=== PATIENT | female | born 1960 | race African-American/Black ===

== ENCOUNTER → 2016-11-08 10:45 | Outpatient (CLI) | payer MEDICAID ==
[2016-04-27 16:13] VITALS: BMI 33.7
[~2016-11-08 10:45] MED LIST: ACETAMINOPHEN325 MG PO; AMBIEN5 MG PO; ASPIRIN 81 MG E81 MG PO; FLAGYL250 MG PO; FLAGYL500 MG PO; GERITOL; GLUCOTROL 5 MG T5 MG PO; HYDROCODON-ACE1 EAC7 PO; LEVAQUIN250 MG PO; LOPRESSOR25 MG PO; MEGACE40 MG PO; NEPHRO-VITE RX1 TAB; NEURONTIN 300300 MG PO; NORVASC5 MG PO; OMEPRAZOLE40 MG PO; PHENERGAN25 M1; PLAVIX75 MG PO; PRENATE ESSENT1 EACH; PROAIR HFA8.5 GM INH; RENVELA800 MG PO; SENSIPAR30 MG PO; TOPROL XL25 MG PO; ULTRAM50 MG PO; ZESTRIL10 MG PO; ZOFRAN4 MG PO; [UNRECOGNIZED DRUG - OTHER] PO
--- NOTE | 2016-11-14 14:16 | ST ---
PATIENT:NAVJOT CHANDLER MEDICAL RECORD: [id number] SEX: F LOCATION:[facility] ORDER #: ADMISSION DATE: 11/08/16 AGE OF PATIENT: 56 REFERRING PHYSICIAN: INTERPRETING PHYSICIAN: NICOLAS MOURA MD DATE OF SERVICE: 11/08/2016 Nuclear Stress Test INDICATION: Cheat pain of unknown etiology. She was exercised on standard Lexiscan protocol with 30.4 mCi of sestamibi injected at peak stress. Rest images were done previously with 11.7 mCi. FINDINGS: Gated SPECT reveals preserved ejection fraction at 68% with good wall motion and thickening and brightening throughout all segments. SPECT imaging sestamibi was used as myocardial perfusion agent. There is homogeneous uptake throughout all segments at rest and stress with no evidence of inducible ischemia or previous infarction. OVERALL IMPRESSION: 1. This is a normal nuclear stress test with no evidence of inducible ischemia or previous infarction. 2. Gated SPECT reveals preserved ejection fraction at 68% in this patient with ongoing symptomatology, the current scan does not suggest the presence of hemodynamically significant coronary artery disease. We will proceed with noncardiac etiology of chest pain workup. TRANSINT:[id number] Voice Confirmation ID: [id number] DOCUMENT ID: [id number] NICOLAS MOURA MD at 1416 CC: [id number] DICTATION DATE: 11/08/16 1636 PARK MANAGER: 11/08/162020 DEP CLI 11/08/16 [facility] [address] [place] [address]
== END | disposition home or self-care (01) ==
LOC: D.NM 10:45
DX: I20.9 Angina pectoris, unspecified (principal)

== ENCOUNTER 2016-12-07 12:00 | Emergency (ER) | payer MEDICAID ==
[2016-04-27 16:13] VITALS: BMI 33.7
[2016-12-07 13:22] LABS: BASOPHILS 0.5 % (0.0-2.0); EOSINOPHILS 3.8 % (0-7); HEMATOCRIT 34.6 % (36.0-48.0); HEMOGLOBIN 10.9 g/dL (12-16); IMMATURE GRANULOCYTES 0.3 % (0-5); LYMPHOCYTES 31.3 % (15-50); MCH 34.2 pg (26.0-34.0); MCHC 31.5 g/dL (31.0-37.0); MCV 108.5 fL (80.0-100.0); MONOCYTES 18.1 % (2-11); PLATELET COUNT 168 10x3/uL (130-400); RBC 3.19 10x6/uL (4.00-5.40); RDW 14.4 % (11.5-14.5); WBC 3.9 10x3/uL (4.8-10.8)
[2016-12-07 13:40] LABS: ALBUMIN 3.2 g/dL (3.4-5.0); ALKALINE PHOSPHATASE 86 U/L (46-116); ALT (SGPT) 17 U/L (10-68); BILIRUBIN - TOTAL 0.47 mg/dL (0.2-1.3); CALC OSMOLALITY 289 mosm/kg (275-300); CALCIUM 8.9 mg/dL (8.5-10.1); CARBON DIOXIDE 26.9 mmol/L (21.0-32.0); CHLORIDE - SERUM 103 mmol/L (98-107); CREATININE - SERUM 10.4 mg/dL (0.6-1.3); GLUCOSE 127 mg/dL (74-106); POTASSIUM - SERUM 4.5 mmol/L (3.5-5.1); PROTEIN - SERUM 7.2 g/dL (6.4-8.2); SODIUM 140 mmol/L (136-145); UREA NITROGEN 37 mg/dL (7-18); eGFR NON AFRICAN AMERICAN 4 mL/min (90-120)
[2016-12-07 13:52] LABS: CKMB 1.8 U/L (0.0-3.6); CREATINE KINASE 106 UL (21-215); TROPONIN-I < 0.017 ng/mL (0.000-0.060)
== END 2016-12-07 15:49 | disposition home or self-care (01) ==
LOC: D.ER 12:00
PROVIDERS: Emergency Medicine
DX: I47.1 Supraventricular tachycardia (principal); I50.9 Heart failure, unspecified; J45.909 Unspecified asthma, uncomplicated; E11.9 Type 2 diabetes mellitus without complications

== ENCOUNTER 2017-02-16 17:56 | Inpatient (IN) | payer MEDICAID ==
[~2017-02-16] VITALS: Ht 154.9 cm; Wt 90.7 kg
[2017-02-16 18:22] LABS: BASOPHILS 0.4 % (0-2); EOSINOPHILS 4.3 % (0-7); HEMOGLOBIN 10.2 g/dL (12-16); MCHC 31.9 g/dL (31.0-37.0); MCV 106.7 fL (80.0-100.0); MEAN PLATELET VOLUME 11.2 fL (7.4-10.4); MONOCYTES 14.9 % (2-11); NEUTROPHILS 50.4 % (40-80); PLATELET COUNT 154 10x3/uL (130-400); RDW 14.2 % (11.5-14.5); WBC 4.6 10x3/uL (4.8-10.8)
[2017-02-16 18:41] LABS: ALBUMIN 3.7 g/dL (3.4-5.0); ANION GAP 21.7 mmol/L (8-16); BILIRUBIN - TOTAL 0.53 mg/dL (0.2-1.3); CALCIUM 9.1 mg/dL (8.5-10.1); CARBON DIOXIDE 22.4 mmol/L (21.0-32.0); CREATININE - SERUM 17.4 mg/dL (0.6-1.3); PROTEIN - SERUM 7.5 g/dL (6.4-8.2)
[2017-02-16 18:43] LABS: POTASSIUM - SERUM 6.1 mmol/L (3.5-5.1)
--- NOTE | 2017-02-16 21:33 | NUR ---
REPORT CALLED FROM ER.
[2017-02-16 23:00] VITALS: BP 157/84
--- NOTE | 2017-02-16 23:43 | NUR ---
PT WAS BROUGHT TO FLOOR FROM ER VIA STRETCHER. SHE HAD BEEN INCONTINENT OF LIQUID BM SO COMPLETE BED BATH PROVIDED SOON PATIENT WAS TRANSFERRED TO BED. ADMISSION ASSESSMENT AND HISTORY INITIATED. SKIN ASSESSMENT, PT HAS REDDENED SACRAL/COCCYX AREA DUE TO FREQUENT BM'S FROM THE KAYEXALATE GIVEN IN ER. PT IS A POOR HISTORIAN, FALLING ASLEEP MID ANSWER. SHE DID AGREE THAT SHE IS HUNGRY AND SANDWICH PROVIDED. TELEMETRY STARTED, PT IS 76 SR PER SENIOR PRODUCTION PLANNER. SHE IS ALERT/ORIENTED TO PERSON, PLACE AND TIME.
[2017-02-17 02:03] VITALS: BP 174/96; BMI 37.8
--- NOTE | 2017-02-17 03:42 | NUR ---
RESTING IN BED WITH NO DISTRESS. CPOC. CALL LIGHT IN REACH.
[2017-02-17 05:47] LABS: BASOPHILS 0.5 % (0-2); HEMATOCRIT 32.5 % (36.0-48.0); HEMOGLOBIN 10.4 g/dL (12-16); IMMATURE GRANULOCYTES 0.2 % (0-5); LYMPHOCYTES 35.4 % (15-50); MCH 33.7 pg (26.0-34.0); MCV 105.2 fL (80.0-100.0); MEAN PLATELET VOLUME 11.7 fL (7.4-10.4); MONOCYTES 11.6 % (2-11); NEUTROPHILS 48.3 % (40-80); PLATELET COUNT 127 10x3/uL (130-400); RBC 3.09 10x6/uL (4.00-5.40); RDW 14.1 % (11.5-14.5); WBC 4.2 10x3/uL (4.8-10.8)
[2017-02-17 06:04] LABS: ALBUMIN 3.5 g/dL (3.4-5.0); BILIRUBIN - TOTAL 0.41 mg/dL (0.2-1.3); CALCIUM 9.6 mg/dL (8.5-10.1); CARBON DIOXIDE 23.4 mmol/L (21.0-32.0); CREATININE - SERUM 18.4 mg/dL (0.6-1.3); PROTEIN - SERUM 7.3 g/dL (6.4-8.2)
[2017-02-17 06:05] LABS: ANION GAP 21.6 mmol/L (8-16)
[2017-02-17 06:42] VITALS: BP 163/87
--- NOTE | 2017-02-17 07:51 | NUR ---
AM ROUNDING- RECEIVED REPORT FROM OIL AND GAS FIELD TECHNICIAN NURSE CAR. PT IS CURRENLTY LAYING IN BED ON BACK WITH EYES CLOSED RESTING. ON MONITOR SHOWING SR, HR 74. ON ROOM AIR. RESERVE RIGHT ARM FOR AVF. IV SEEN TO LEFT FOREARM THAT IS CURRENTLY SALINE LOCKED. PTS POTASSIUM IS 6.0. DR. ROSS ON UNIT. NOTIFIED HIM OF THIS. NO NEED AT CURRENT TIME. WILL CONTINUE TO MONITOR AND CONTINUE WITH PLAN OF CARE.
[2017-02-17 07:56] VITALS: BP 188/100
--- NOTE | 2017-02-17 10:48 | NUR ---
PT TO DIALYSIS VIA BED.
--- NOTE | 2017-02-17 11:58 | NUR ---
02/17/2017 11:54 CLIN: Clinical Finding Routine [facility], but has not been in past 6 days per her statement, due to diarrhea. Where was patient admitted from? ACUTE: Acute Care Facility AL: Assisted Living HOME: Home HOSPICE: Hospice INREH: Inpatient Rehab Facility LTAC: Full Decator Operator Acute Care NH: Longterm SNF: Senior Care Facility Has there been an admission to this or another facility in the last 30 days? Yes No Clear 02/17/2017 11:54 CLIN: Clinical Finding Routine [facility], but has not been in past 6 days per her statement, due to diarrhea. Fariha Neal RN Cm
[2017-02-17 12:12] VITALS: Ht 154.9 cm; Wt 90.7 kg
--- NOTE | 2017-02-17 15:01 | NUR ---
PT IS BACK FROM DIALYSIS.
[2017-02-17 15:42] VITALS: BP 172/88
--- NOTE | 2017-02-17 16:40 | NUR ---
DIALYSIS COORDINATOR: PATHWAYS: [facility] Mon/Mon/Mon @ 11:45am. [place] DC
--- NOTE | 2017-02-17 17:21 | NUR ---
PT IS CURRENTLY LAYING IN BED ON BACK WITH EYES OPEN RESTING. DENIES ANY NEED AT CURRENT TIME. WILL CONTINUE TO MONITOR.
--- NOTE | 2017-02-17 19:43 | NUR ---
RECEIVED REPORT, PT IS SLEEPING, BED IS LOW, SRX3, PLACED BOX ALARM ON PT, CALL LIGHT IN REACH, WILL CONTINUE TO MONITOR
[2017-02-17 20:21] VITALS: BP 126/71
[2017-02-18 00:28] VITALS: BP 117/68
[2017-02-18 04:13] VITALS: BP 106/63
--- NOTE | 2017-02-18 04:31 | NUR ---
ASSESSMENT COMPLETE, SEE FLOWSHEET, PT IS SLEEPING, HELD ULTRAM, CALL LIGHT IN REACH, WILL CONTINUE PLAN OF CARE
--- NOTE | 2017-02-18 07:31 | NUR ---
AM ROUNDING- RECEIVED REPORT FROM SUPERVISOR METAL HANGING NURSE BRANDO. PT IS CURRENTLY SITTING UP IN BED WITH EYES OPEN RESTING. ON MONITOR SHOWING SR, HR 77. ON ROOM AIR. RESERVE RIGHT ARM FOR AVF. IV SEEN TO LEFT FOREARM THAT IS CURRENTLY SALINE LOCKED. NO NEED AT CURRENT TIME. WILL CONTINUE TO MONITOR AND CONTINUE WITH PLAN OF CARE.
[2017-02-18 08:36] VITALS: BP 139/80
[2017-02-18 11:16] LABS: BASOPHILS 0.3 % (0-2); EOSINOPHILS 3.5 % (0-7); HEMATOCRIT 33.6 % (36.0-48.0); HEMOGLOBIN 10.8 g/dL (12-16); LYMPHOCYTES 22.5 % (15-50); MCHC 32.1 g/dL (31.0-37.0); MCV 105.7 fL (80.0-100.0); MEAN PLATELET VOLUME 10.7 fL (7.4-10.4); MONOCYTES 15.9 % (2-11); NEUTROPHILS 57.8 % (40-80); PLATELET COUNT 138 10x3/uL (130-400); RBC 3.18 10x6/uL (4.00-5.40); RDW 13.7 % (11.5-14.5)
[2017-02-18 11:24] LABS: ANION GAP 14.2 mmol/L (8-16); CALCIUM 8.9 mg/dL (8.5-10.1)
[2017-02-18 11:25] LABS: CREATININE - SERUM 11.7 mg/dL (0.6-1.3); POTASSIUM - SERUM 4.2 mmol/L (3.5-5.1)
[2017-02-18 11:28] VITALS: BP 130/65
--- NOTE | 2017-02-18 13:53 | NUR ---
PAGED STACY GUNN NP TO SEE ABOUT PTS SCHEDULED ULTRAM. WILL AWAIT CALLBACK.
--- NOTE | 2017-02-18 14:53 | NUR ---
ASKED PT WHO WILL BE COMING TO GET HER DUE TO PT BEING D/C. PT STATES "MY DAUGHTER". I LOOKED IN CHART AND CALLED PHONE NUMBER PROVIDED WITH MESSAGE STATING PHONE WAS NO LONGER IN SERVICE. ASKED PT IF DAUGHTER WAS AWARE PT IS BEING D/C AND PT STATES "YES SHE SHOULD BE COMING TO GET ME SOON". WILL CONTINUE TO MONITOR.
--- NOTE | 2017-02-18 15:16 | NUR ---
CALLED DAUGHTERS PHONE NUMBER WITH PHONE NUMBER PROVIDED AND GOT ANSWERING MACHINE. LEFT VOICEMAIL AND PHONE NUMBER TO CALL BACK. WILL CONTINUE TO MONITOR.
--- NOTE | 2017-02-18 15:32 | NUR ---
PTS DAUGHTER (KATHERINE) CALLED UNIT. IN INFORMED PTS DAUGHTER THAT PT IS BEING D/C AND SOMEONE WILL HAVE TO COME GET HER. PTS DAUGHTER STATES SHE WILL BE HERE IN ONE HOUR.
--- NOTE | 2017-02-18 15:44 | NUR ---
D/C INSTRUCTIONS EXPLAINE TO PT. D/C PAPERWORK SIGNED BY PT AND PLACED IN CHART. HEART MONITOR REMOVED AND RETURNED TO [facility] WITH TELEMETRY. IV TO LEFT FOREARM REMOVED WITH CATH TIP INTACT. COVERED SITE WITH 2X2 GUAZE PADS AND SECURED WITH TAPE. TOLERATED WELL. AWAITING PTS DAUGHTER TO COME GET PT. WILL CONTINUE TO MONITOR.
--- NOTE | 2017-02-18 17:31 | NUR ---
DAUGHTER CAME TO GET PT. PT D/C VIA WHEELCHAIR.
== END 2017-02-18 17:32 | disposition home or self-care (01) | DRG 640 ==
LOC: D.ER 17:56 → D.M2 19:46
PROVIDERS: Emergency Medicine; Internal Medicine; ADMIT Internal Medicine Nephrology
PROC: 5A1D00Z (ICD-10-PCS; principal; 2017-02-17)
DX: E87.5 Hyperkalemia (principal); N18.6 End stage renal disease; I13.2 Hypertensive heart and chronic kidney disease with heart failure and with stage 5 chronic kidney disease, or end stage renal disease; E11.22 Type 2 diabetes mellitus with diabetic chronic kidney disease; I50.9 Heart failure, unspecified; Z99.2 Dependence on renal dialysis; Z91.15 Patient's noncompliance with renal dialysis; E11.40 Type 2 diabetes mellitus with diabetic neuropathy, unspecified; F20.9 Schizophrenia, unspecified; J44.9 Chronic obstructive pulmonary disease, unspecified; F41.9 Anxiety disorder, unspecified

== ENCOUNTER 2019-03-12 14:23 | Inpatient (IN) | payer MEDICAID ==
[~2019-03-12] VITALS: Ht 154.9 cm; Wt 78.5 kg
[2019-03-12 15:48] LABS: BASOPHILS 0.4 % (0-2); EOSINOPHILS 3.3 % (0-7); HEMATOCRIT 29.6 % (36.0-48.0); HEMOGLOBIN 9.4 g/dL (12-16); IMMATURE GRANULOCYTES 0.3 % (0-5); LYMPHOCYTES 12.8 % (15-50); MCH 34.1 pg (26.0-34.0); MCHC 31.8 g/dL (31.0-37.0); MCV 107.2 fL (80.0-100.0); MEAN PLATELET VOLUME 10.4 fL (7.4-10.4); MONOCYTES 7.1 % (2-11); NEUTROPHILS 76.1 % (40-80); RBC 2.76 10x6/uL (4.00-5.40); RDW 14.1 % (11.5-14.5); WBC 7.7 10x3/uL (4.8-10.8)
[2019-03-12 16:00] LABS: PLATELET COUNT 250 10x3/uL (130-400)
[2019-03-12 16:10] LABS: ALBUMIN 3.1 g/dL (3.4-5.0); BILIRUBIN - TOTAL 0.45 mg/dL (0.2-1.3); CALCIUM 9.4 mg/dL (8.5-10.1); CARBON DIOXIDE 24.9 mmol/L (21.0-32.0); CREATININE - SERUM 10.8 mg/dL (0.6-1.3); PROTEIN - SERUM 7.3 g/dL (6.4-8.2)
[2019-03-12 16:14] LABS: POTASSIUM - SERUM 7.9 mmol/L (3.5-5.1)
--- NOTE | 2019-03-12 17:01 | NUR ---
PT BROUGHT TO FLOOR BY ER STAFF. PT VERY LETHARGIC AND EXTREMELY HARD TO WAKE. LAB CALLED AND STATES PT POTASSIUM IS 7.9. CALLED DIALYSIS AND DIALYSIS STATES THEY CAN TAKE PT NOW. SENT PT DOWN TO DIALYSIS WITH A HEART MONITOR. NOTIFIED NURSE THAT HE WOULD LIKE PT TRANSFERED TO ICU ONCE DIALYSIS IS FINISHED.
[2019-03-12 20:19] VITALS: BP 163/83
--- NOTE | 2019-03-12 20:19 | NUR ---
PATIENT ARRIVED TO UNIT VIA BED, ACCOMPANIED BY ONE RN AND TYPING CHECKER. ALL ICU MONITORING CONNECTED. ORAL TEMP 98.6. BP 163/83. HR 102. RR 14. O2 SAT 100% ON ROOM AIR. NO IV ACCESS. Brian SANTORO RN ATTEMPTED IV ON LT ARM, NO SUCCESS. SEE FLOW SHEET FOR COMPLETE ASSESSMENT.
--- NOTE | 2019-03-12 20:47 | NUR ---
CALLED DR. BEE TO INFORM HIM OF UNSUCCESSFUL IV ATTEMPT. WILL WAIT FOR CALL BACK.
--- NOTE | 2019-03-12 20:54 | NUR ---
STACY GUNN APN, SHEET ROLLER OPERATOR FOR DR. BEE. UPDATE GIVEN ON PATIENT STATUS. INFORMED HER OF UNSUCCESSFUL IV ATTEMPT, AND THAT PATIENT HAS SCHEDULED IV ANTIBIOTICS. PER HER ORDERS OK TO ATTEMP IV PLACEMENT ON RT SHOULDER/CHEST, IF UNSUCCESSFUL TO OBTAIN ORDERS FOR CVL PLACEMENT.
[2019-03-12 21:00] VITALS: BP 148/85
--- NOTE | 2019-03-12 21:14 | NUR ---
RT SHOULDER PIV ESTABLISHED BY Brian SANTORO RN, X1 ATTEMPT.
[2019-03-12 22:00] VITALS: BP 156/87
[2019-03-12 23:00] VITALS: BP 130/72
--- NOTE | 2019-03-12 23:14 | NUR ---
REASSESSMENT COMPLETED PER FLOW SHEET, SEE FOR DETAILS. NO ACUTE CHANGES NOTED. WILL CONTINUE TO MONITOR.
[2019-03-13] VITALS (15 sets, daily range): BP systolic 116–168; BP diastolic 66–85; Ht 154.9 cm; Wt 78.5 kg
--- NOTE | 2019-03-13 01:58 | NUR ---
PATIENT YELLING "WATER" PATIENT MORE ALERT, STATES SHE FEELS "BETTER." WATER PROVIDED, TOLERATED WELL, NO TROUBLE SWALLOWING. WILL CONTINUE TO MONITOR.
--- NOTE | 2019-03-13 03:01 | NUR ---
REASSESSMENT COMPLETED PER FLOW SHEET, SEE FOR DETAILS. CONFUSED, REORIENTATION PROVIDED. REQUESTING WATER, WATER PROVIDED. DENIES OTHER NEEDS. WILL CONTINUE TO MONITOR.
[2019-03-13 04:01] LABS: BASOPHILS 0.2 % (0-2); EOSINOPHILS 2.5 % (0-7); HEMATOCRIT 26.7 % (36.0-48.0); HEMOGLOBIN 8.7 g/dL (12-16); IMMATURE GRANULOCYTES 0.4 % (0-5); MCH 33.9 pg (26.0-34.0); MCHC 32.6 g/dL (31.0-37.0); MCV 103.9 fL (80.0-100.0); MEAN PLATELET VOLUME 10.1 fL (7.4-10.4); NEUTROPHILS 81.9 % (40-80); PLATELET COUNT 204 10x3/uL (130-400); RBC 2.57 10x6/uL (4.00-5.40); WBC 5.7 10x3/uL (4.8-10.8)
[2019-03-13 04:11] LABS: ANION GAP 9.4 mmol/L (8-16); CALCIUM 8.7 mg/dL (8.5-10.1); CARBON DIOXIDE 29.2 mmol/L (21.0-32.0)
[2019-03-13 04:40] LABS: CREATININE - SERUM 6.9 mg/dL (0.6-1.3); POTASSIUM - SERUM 4.6 mmol/L (3.5-5.1)
--- NOTE | 2019-03-13 05:00 | NUR ---
AWAKE AND ALERT. WATER PROVIDED, DENIES OTHER NEEDS. WILL CONTINUE TO MONITOR.
--- NOTE | 2019-03-13 07:00 | NUR ---
PT RESTING IN BED WITH CALL WILDE IN REACH. VSS. IV TO RIGHT SHOULDER WITH D5W INFUSING AT 75ML/HR. FISTULA TO RIGHT UPPER ARM WITH THRILL AND BRUIT. LINENS CLEAN AND DRY. WILL CONTINUE TO MONITOR
--- NOTE | 2019-03-13 08:38 | NUR ---
SERVED BREAKFAST TRAY IN BED. ELEVATED HOB 90 DEGREES.
--- NOTE | 2019-03-13 09:00 | NUR ---
OBTAINED TRANSFER ORDERS FROM DR. BEE AND RESTARTED SOME [facility] HOME MEDS PER ORDERS. PT RESTING IN BED WITH CALL WILDE IN REACH. WILL CONTINUE TO MONITOR
--- NOTE | 2019-03-13 11:28 | NUR ---
SPOKE TO SON, LAWRENCE CHANDLER ON PHONE. OBTAINED NUMBER AND PUT IN COMPUTER. EXPLAINED THAT NO INFORMATION COULD BE GIVEN WITHOUT A PASSWORD SET UP, AND EXPLAINED SOMEONE WOULD NEED TO COME SEE PATIENT TO SET UP PASSWORD.
--- NOTE | 2019-03-13 11:52 | NUR ---
CALLED REPORT TO MED 2 NURSE, LILLIAN.
--- NOTE | 2019-03-13 13:00 | NUR ---
PT RESTING IN BED, DENIES ANY NEEDS AT THIS TIME, WILL CONT TO FOLLOW POC
[2019-03-13] MEDS ORDERED: PRED FORTE5 ML LEFT EYE (14:50)
--- NOTE | 2019-03-13 15:16 | NUR ---
PT STATES HER RIGHT EYE IS HURTING. PT STATES SHE IS SEEN BY AN EYE DOCTOR AT [facility] BUT CANNOT REMEMBER HIS NAME. CALLED [facility] AT [facility] AND THEY WERE ABLE TO VERIFY THAT THE PT IS TREATED THERE. [facility] TOLD NURSE THAT THE PT TAKES PREDNISOLONE ACETATE 1% DAILY. NOTIFIED AMANDA FAITH. NEW ORDER RECIEVED TO RESTART THIS MEDICATION.
--- NOTE | 2019-03-13 18:00 | NUR ---
PT RESTING IN BED EATING SUPPER, DENIES ANY NEEDS AT THIS TIME, CALL LIGHT WITHIN REACH, WILL CONT TO FOLLOW POC
--- NOTE | 2019-03-14 03:30 | NUR ---
PT WOKE UP SCREAMING "THERE IS A BLACK BOLIVIAN IN MY ROOM WITH A GUN. HE'S TRYNA KILL ME." PT APPEARS CONFUSED. SHE JUST WOKE UP FROM SLEEP. HELPED CALM PT DOWN ANDN ASSERT THAT NO KILLER WAS IN HER ROOM. PT NOW CALM AND RESTING IN BED. ASSSES VSS. BP 184/85 @ THIS TIME. WILL RECHECK IN 15MIN. PT 105 SINUS TACH ON TELE @ THIS TIME. WILL CTM. COMFORT CARE PRODIDED TO PT. CL WITHIN REACH, BED IN LOW, SR UP X2.
--- NOTE | 2019-03-14 03:55 | NUR ---
RECHECKED BP NOW 156/80. PT RESTING IN BED. IV ZOSYN INFUSING. PT DENIES ANY FURTHER NEED AT THIS TIME. WILL CPOC.
[2019-03-14 04:13] LABS: BASOPHILS 0.3 % (0-2); EOSINOPHILS 3.7 % (0-7); HEMOGLOBIN 8.9 g/dL (12-16); LYMPHOCYTES 16.8 % (15-50); MCH 33.5 pg (26.0-34.0); MEAN PLATELET VOLUME 10.4 fL (7.4-10.4); MONOCYTES 11.1 % (2-11); NEUTROPHILS 68.1 % (40-80); PLATELET COUNT 193 10x3/uL (130-400); RBC 2.66 10x6/uL (4.00-5.40); RDW 13.5 % (11.5-14.5)
[2019-03-14 04:15] LABS: MCV 101.5 fL (80.0-100.0); WBC 3.5 10x3/uL (4.8-10.8)
[2019-03-14 04:30] VITALS: BP 156/80
[2019-03-14 04:47] LABS: ANION GAP 15.6 mmol/L (8-16); CALCIUM 8.8 mg/dL (8.5-10.1); CARBON DIOXIDE 26.1 mmol/L (21.0-32.0); CREATININE - SERUM 8.6 mg/dL (0.6-1.3); POTASSIUM - SERUM 4.7 mmol/L (3.5-5.1)
--- NOTE | 2019-03-14 07:30 | NUR ---
A/A/OX3. DISORIENTED TO SITUATION. TOLD ME "I SAW YOU AND THAT MAN TALKING IN THE CORNER AND WHAT YOU SAID ABOUT ME". TRIED TO CONVINCE PT THERE WAS NO MAN IN HER ROOM. NEXT SHE STATED "CZECH MAN WAS IN HERE AND WOULDN'T LEAVE." ASSURED PT I COULD SEE HER ROOM FROM MY DESK AND NO BODY HAD BEEN IN THERE. ASSESSMENT COMPLETED. DENIES ANY PAIN OR DISCOMFORT AND NO OTHER REQUESTS VOICED. WILL CONTINUE POC.
[2019-03-14 07:35] VITALS: BP 186/95
--- NOTE | 2019-03-14 09:30 | NUR ---
TO DIALYSIS VIA BED.
--- NOTE | 2019-03-14 11:04 | NUR ---
Nutrition follow-up: Diet: Renal ADA PO Intake ~50% of meals; pt is also eating snacks Labs reviewed Wt: 173# RDN following.
[2019-03-14] MEDS ORDERED: LEVOFLOXACIN500 MG PO (12:10)
--- NOTE | 2019-03-14 12:53 | NUR ---
I have reviewed this patient and I concur with the Shift Assessment completed by the Licensed Practical Nurse today this shift.
--- NOTE | 2019-03-14 14:44 | NUR ---
RETURN TO ROOM VIA BED FROM DIALYSIS.
--- NOTE | 2019-03-14 16:40 | MORECARE ---
CASE MANAGEMENT DISCHARGE SUMMARY PATIENT: NAVJOT CHANDLER UNIT: [id number] ADM DATE: 03/12/19 AGE: 58 : 56 SEX: F ROOM/BED: D.2115 AUTHOR: KATARINA GARCIA PHYSICIAN: REFERRING PHYSICIAN: INGRID BEE MD DATE OF SERVICE: 03/14/19 Discharge Plan Patient Name: NAVJOT CHANDLER Facility: [facility]:[place] : 1960 Planned Disposition: Home Anticipated Discharge Date: 03/14/19 Discharge Date: Expected LOS: 2 Initial Reviewer: [email or web address] Initial Review Date: 03/14/2019 Generated: 03/14/19 5:39 pm Comments DCP- Discharge Planning Updated by [id number]: Levy Hope on 03/14/19 10:[address] Patient Name: NAVJOT CHANDLER Encounter No: [id number] : 1960 Primary Insurance: MEDICAID [place] Anticipated DC Date: Planned Disposition: External Planned Provider: : DCP follow-up note: CM SPOKE TO NEDA GUNN WHO INFORMED CM THAT PT WILL DISCHARGE TODAY. CM ATTEMPTED TO MEET WITH PT FOR INITIAL ASSESSMENT OF DISCHARGE NEEDS. PT WAS NOT IN ROOM AT [id number] HOURS. CM TO ATTEMPT ASSESSMENT OF PT AT A LATER TIME. Levy Hope, ABRIL MORRIS DCP- Discharge Planning Updated by [id number]: Fariha Neal on 03/12/19 3:[address] CM attempted dc planning, but mental status is altered. Patient is unable to answer questions at this time. Patient is a transfer from [facility], and is a HD patient in [place], on . Attempted to contact Daughter, Kezia Chandler @[phone] was instructed "the phone number has calling restrictions". CM will attempt to evaluate patient at a later time when she is more alert. CM will assist as needed PRN. Fariha Neal RN Patient Name: NAVJOT CHANDLER Page [phone] at 1640 All edits/amendments must be made on the electronic document DICTATION DATE: 03/14/19 1639 LAUNDRY PRESS OPERATOR: AARON 03/14/19 1639 RPT#: [id number] DC DATE: STATUS: ADM IN [facility] [address] [place] [address] END OF REPORT
--- NOTE | 2019-03-14 16:49 | MORECARE ---
CASE MANAGEMENT DISCHARGE SUMMARY PATIENT: NAVJOT CHANDLER UNIT: [id number] ADM DATE: 03/12/19 AGE: 58 : 56 SEX: F ROOM/BED: D.0270 AUTHOR: JOSE,DOC PHYSICIAN: REFERRING PHYSICIAN: INGRID BEE MD DATE OF SERVICE: 03/14/19 Discharge Plan Patient Name: NAVJOT CHANDLER Facility: [facility]:[place] : 1960 Planned Disposition: Home Anticipated Discharge Date: 03/14/19 Discharge Date: Expected LOS: 2 Initial Reviewer: [email or web address] Initial Review Date: 03/14/2019 Generated: 03/14/19 5:49 pm Comments DCP- Discharge Planning Updated by [id number]: Levy Hope on 03/14/19 10:[address] Patient Name: NAVJOT CHANDLER Encounter No: [id number] : 1960 Primary Insurance: MEDICAID [place] Anticipated DC Date: Planned Disposition: External Planned Provider: : DCP follow-up note: CM SPOKE TO NEDA GUNN WHO INFORMED CM THAT PT WILL DISCHARGE TODAY. CM ATTEMPTED TO MEET WITH PT FOR INITIAL ASSESSMENT OF DISCHARGE NEEDS. PT WAS NOT IN ROOM AT [id number] HOURS. CM TO ATTEMPT ASSESSMENT OF PT AT A LATER TIME. Levy Hope, CASE MANAGEMENT DCP- Discharge Planning Updated by [email or web address]: Fariha Neal on 03/12/19 3:[address] CM attempted dc planning, but mental status is altered. Patient is unable to answer questions at this time. Patient is a transfer from [facility], and is a HD patient in [place], . Attempted to contact Daughter, Katherine Chandler @[phone] was instructed "the phone number has calling restrictions". CM will attempt to evaluate patient at a later time when she is more alert. CM will assist as needed PRN. Fariha Neal RN DCPIA - Discharge Planning Initial Assessment Updated by [id number]: Levy Hope on 03/14/19 4:41 pm * Is the patient Alert and Oriented? Yes * How many steps to enter\\exit or inside your home? * PCP DR. MARTHA ASTUDILLO * Pharmacy [facility] IN [place] OR [place] * Preadmission Environment Home with Family * ADLs Independent * Equipment Cane Nebulizer Rolling Walker * Other Equipment ROLLING WALKER HAS A SEAT NO MEDICAL EQUIPMENT PROVIDER PREFERENCE * List name and contact numbers for known caregivers / representatives who currently or will assist patient after discharge: KATHERINE GERALDINE, DTR, MERLIN ABRAHAM, DTR IN [facility], * Verbal permission to speak to the caregivers and representatives has been obtained from the patient. N/A * Community resources currently utilized Other * Please name any agencies selected above. OUTPATIENT DIAL[facility]IS [facility], [facility], 1130, [facility] * Additional services required to return to the preadmission environment? No * Can the patient safely return to the preadmission environment? Yes * Has this patient been hospitalized within the prior 30 days at any hospital? Yes Last DP export: 03/14/19 3:39 p Patient Name: NAVJOT CHANDLER Page 12349 at 1649 All edits/amendments must be made on the electronic document DICTATION DATE: 03/14/191647 SUPERVISOR TWISTING DEPARTMENT: AARON 03/14/191647 RPT#: [id number] DC DATE: STATUS: ADM IN [facility] [address] [place] [address] END OF REPORT
--- NOTE | 2019-03-14 16:57 | NUR ---
DISCHARGE INSTRUCTIONS REVIEWED WITH PT AND HER SON AND DIL. NO QUESTIONS ABOUT THE ANY OF THE INSTRUCTIONS. IV RIGHT CHEST DC'D WITH TIP INTACT. LEFT FLOOR VIA W/C WITH ALL PERSONAL BELONGINGS AND LEFT FACILITY VIA PRIVATE VEHICLE WITH SON.
--- NOTE | 2019-03-14 16:58 | MORECARE ---
CASE MANAGEMENT DISCHARGE SUMMARY PATIENT: NAVJOT CHANDLER UNIT: [id number] ADM DATE: 03/12/19 AGE: 58 : 56 SEX: F ROOM/BED: D.2754 AUTHOR: JOSE,DOC PHYSICIAN: REFERRING PHYSICIAN: INGRID BEE MD DATE OF SERVICE: 03/14/19 Discharge Plan Patient Name: NAVJOT CHANDLER Facility: [facility]:[place] : 1960 Planned Disposition: Home Anticipated Discharge Date: 03/14/19 Discharge Date: Expected LOS: 2 Initial Reviewer: [id number] Initial Review Date: 03/14/2019 Generated: 03/14/19 5:58 pm Comments DCP- Discharge Planning Updated by [email or web address]: Levy Hope on 03/14/19 3:[address] Patient Name: NAVJOT CHANDLER Encounter No: [id number] : 1960 Primary Insurance: MEDICAID [place] Anticipated DC Date: 03-14-2019 Planned Disposition: Home DCP follow-up note: CM SPOKE TO NEDA GUNN WHO INFORMED CM OF FAMILY CONCERNS THAT PT IS NOT BEING TAKEN CARE OF WELL AT HOME, HAS HAD 6 HOSPITAL STAYS THIS MONTH AND MISSED DIALYSIS. CM DISCUSSED HOME HEALTH, RECEIVING AND PROCESSING SUPERVISOR ADVISED PT DOES NOT NEED IT. CM INFORMED RECEIVING AND PROCESSING SUPERVISOR THAT CM WILL CALL REPORT OF SUSPECTED NEGLECT TO ADULT PROTECTIVE SERVICES. CM MET WITH PT IN ROOM TO DISCUSS DISCHARGE PLANNING AND NEEDS. PT REPORTS LIVING AT HOME INDEPENDENTLY WITH FAMILY MEMBERS. PT REPORTS HER DAUGHTER, KATHERINE, WAKES PT UP FOR DIALYSIS AND PT CATCHES THE [facility] BUS. PT REPORTS DIALYSIS IN [facility], 1130 AM. PT HAS NEBULIZER, THREE CANES AND A WALKER WITH NO MEDICAL EQUIPMENT PROVIDER PREFERENCE. PT HAS NO OUTSIDE SERVICES ASSISTING IN THE HOME. CM DISCUSSED AVAILABILITY OF HOME HEALTH, REHAB SERVICES AND MEDICAL EQUIPMENT. PT DENIES DISCHARGE NEEDS, REPORTS HER FAMILY WILL PICK HER UP FOR DISCHARGE HOME. CM SPOKE TO BEDSIDE NURSE WHO INFORMED CM THAT PT'S DAUGHTER IN LAW, MERLIN ABRAHAM, WILL MANAGER SHIFT PT TODAY. PT DENIES SHE IS BEING ABUSED OR NEGLECTED. PT REPORTS FEELING SAFE AT HOME AND INFORMED CM SHE IS NOT GOING ANYWHERE ELSE BUT HOME. CM CALLED TO VERIFY TRANSPORT MANAGER SHIFT AT [phone]. MERLIN REPORTS PT'S SON AND SHE WILL MANAGER SHIFT PT AND TRANSPORT HOME TODAY. SHE IS CONCERNED THAT PT IS NOT BEING CARED FOR SHE SHOULD BE AT HOME, IS NOT EATING A PROPER DIET, IS SLEEPING IN A RECLINER CHAIR AND HAS HAD MULTIPLE HOSPITAL STAYS THIS MONTH WELL MISSING DIALYSIS. CM CALLED ADULT PROTECTIVE SERVICES HOTLINE, ,. PROVIDED REFERRAL FOR CAREGIVER NEGLECT, CASE #[id number], WAS ADVISED THAT CM MAY OR MAY NOT HEAR FROM AN BEEF SPLITTER REGARDING THE REPORT. THERE IS NO CURRENT ADULT PROTECTIVE SERVICES HOLD ON PATIENT. PT PLANS TO DISCHARGE HOME WITH FAMILY, DENIES NEEDS. Levy Hope, CASE MANAGEMENT Appended by Levy Hope on 03/14/2019 16:53 CDT: PATIENTS DISCHARGE ADDRESS IS [address] [place] [address]. ABRIL ARGUETA MANAGEMENT DCP- Discharge Planning Updated by [id number]: Levy Hope on 03/14/19 10:[address] Patient Name: NAVJOT CHANDLER Encounter No: [id number] : 1960 Primary Insurance: MEDICAID [place] Anticipated DC Date: Planned Disposition: External Planned Provider: : DCP follow-up note: CM SPOKE TO NEDA GUNN WHO INFORMED CM THAT PT WILL DISCHARGE TODAY. CM ATTEMPTED TO MEET WITH PT FOR INITIAL ASSESSMENT OF DISCHARGE NEEDS. PT WAS NOT IN ROOM AT [id number] HOURS. CM TO ATTEMPT ASSESSMENT OF PT AT A LATER TIME. ABRIL Argueta MANAGEMENT DCP- Discharge Planning Updated by [email or web address]: Fariha Neal on 03/12/19 3:[address] CM attempted dc planning, but mental status is altered. Patient is unable to answer questions at this time. Patient is a transfer from [facility], and is a HD patient in [place], on . Attempted to contact Daughter, Katherine Chandler @[phone] was instructed "the phone number has calling restrictions". CM will attempt to evaluate patient at a later time when she is more alert. CM will assist as needed PRN. Fariha Neal RN DCPIA - Discharge Planning Initial Assessment Updated by [email or web address]: Levy Hope on 03/14/19 4:41 pm * Is the patient Alert and Oriented? Yes * How many steps to enter\\exit or inside your home? * PCP DR. MARTHA ASTUDILLO * Pharmacy [facility] IN [place] OR [place] * Preadmission Environment Home with Family * ADLs Independent * Equipment Cane Nebulizer Rolling Walker * Other Equipment ROLLING WALKER HAS A SEAT NO MEDICAL EQUIPMENT PROVIDER PREFERENCE * List name and contact numbers for known caregivers / representatives who currently or will assist patient after discharge: KATHERINE GERALDINE, DTR, MERLIN ABRAHAM, DTR IN [facility], * Verbal permission to speak to the caregivers and representatives has been obtained from the patient. N/A * Community resources currently utilized Other * Please name any agencies selected above. [facility] D[facility] [facility], [facility], 1130, [facility] * Additional services required to return to the preadmission environment? No * Can the patient safely return to the preadmission environment? Yes * Has this patient been hospitalized within the prior 30 days at any hospital? Yes Last DP export: 03/14/19 3:49 p Patient Name: NAVJOT CHANDLER Page 38869 at 1658 All edits/amendments must be made on the electronic document DICTATION DATE: 03/14/191657 NURSE TRANSITION: AARON 03/14/191657 RPT#: [id number] DC DATE: STATUS: ADM IN [facility] [address] [place] [address] END OF REPORT
== END 2019-03-14 16:59 | disposition home or self-care (01) | DRG 640 ==
LOC: D.ER 14:23 → D.M2 15:34 → D.CVICU 20:21 → D.M2 03-13 11:56
PROVIDERS: Family Medicine; ADMIT Internal Medicine Nephrology; ATTEND Internal Medicine Nephrology
PROC: 5A1D70Z Performance of Urinary Filtration, Intermittent, Less than 6 Hours Per Day (ICD-10-PCS; principal; 2019-03-12)
DX: E87.5 Hyperkalemia (principal); N18.6 End stage renal disease; J18.9 Pneumonia, unspecified organism; I13.2 Hypertensive heart and chronic kidney disease with heart failure and with stage 5 chronic kidney disease, or end stage renal disease; E11.22 Type 2 diabetes mellitus with diabetic chronic kidney disease; I50.9 Heart failure, unspecified; Z99.2 Dependence on renal dialysis; Z91.15 Patient's noncompliance with renal dialysis; M32.9 Systemic lupus erythematosus, unspecified; F41.9 Anxiety disorder, unspecified

== ENCOUNTER 2019-12-20 17:10 | Inpatient (IN) | payer MEDICAID ==
[~2019-12-20] VITALS: Ht 154.9 cm; Wt 68.0 kg
[~2019-12-20 17:10] MED LIST changes: +LEVOFLOXACIN500 MG PO; +PRED FORTE5 ML LEFT EYE
[2019-12-20 18:00] LABS: BASOPHILS 0.2 % (0-2); HEMATOCRIT 26.9 % (36.0-48.0); HEMOGLOBIN 8.5 g/dL (12-16); IMMATURE GRANULOCYTES 0.2 % (0-5); LYMPHOCYTES 17.3 % (15-50); MCH 31.8 pg (26.0-34.0); MCHC 31.6 g/dL (31.0-37.0); MCV 100.7 fL (80.0-100.0); MEAN PLATELET VOLUME 11.2 fL (7.4-10.4); MONOCYTES 11.6 % (2-11); NEUTROPHILS 69.7 % (40-80); PLATELET COUNT 195 10x3/uL (130-400); RBC 2.67 10x6/uL (4.00-5.40); RDW 13.5 % (11.5-14.5)
[2019-12-20] MEDS ORDERED: ALOPHEN PILLS5 MG PO (18:00)
[2019-12-20] MEDS ORDERED: DONEPEZIL HCL5 MG PO (18:00)
[2019-12-20] MEDS ORDERED: PROCRIT/EP10000 UNIT SQ (18:01)
[2019-12-20] MEDS ORDERED: MIDODRINE HCL5 MG PO (18:03)
--- NOTE | 2019-12-20 18:27 | NUR ---
DR PARHAM REPORTS STOP D5 GTT AND FEED PT
--- NOTE | 2019-12-20 18:28 | NUR ---
D5 1/2 NS STARTED BY ALEX ER STOPPED (TOTAL INFUSE APPROX 500ML), OJ GIVEN AND MEAL TRAY ORDERED.
[2019-12-20 18:29] VITALS: BP 156/89
--- NOTE | 2019-12-20 18:47 | NUR ---
DIABETIC MEAL TRAY SERVED.
[2019-12-20 18:55] LABS: ANION GAP 11.9 mmol/L (8-16); CALCIUM 7.4 mg/dL (8.5-10.1); CARBON DIOXIDE 27.4 mmol/L (21.0-32.0); CREATININE - SERUM 8.5 mg/dL (0.6-1.3); POTASSIUM - SERUM 5.3 mmol/L (3.5-5.1)
[2019-12-20 19:00] LABS: BILIRUBIN - TOTAL 0.37 mg/dL (0.2-1.3); PROTEIN - SERUM 6.9 g/dL (6.4-8.2)
[2019-12-20 20:58] LABS: BILIRUBIN NEGATIVE (NEGATIVE); GLUCOSE NEGATIVE (NEGATIVE); KETONE NEGATIVE (NEGATIVE); NITRITE NEGATIVE (NEGATIVE); UROBILINOGEN NORMAL (NORMAL)
--- NOTE | 2019-12-20 21:07 | NUR ---
RECEIVED FROM ER. ALERT,ORIENTED.IV LEFT NECK INTACT WITHOUT REDENSS OR EDEMA NOTED. FISTULA TO RIGHT UPPER ARM. PEG TUBE TO ABD INTACT. STATES DOESNT USE ANYMORE. NO COMPALITNS VOICED. CL IN REACH. ORIENTED TO ROOM.
[2019-12-20 21:49] VITALS: BP 151/68
--- NOTE | 2019-12-20 23:58 | NUR ---
FSBS 48. PATIENT ALERT AND TALKING. IV D5W STARTED TO LEFT IV AT 30 CC/HR PER ORDERS. PATIENT COMPLAINT OF BEING HUNGRY. GIVEN SANDWICH AND MILK. FSBS 130 AFTER MEAL.
[2019-12-21] VITALS: BP 135/75
[2019-12-21 04:00] VITALS: BP 129/64
[2019-12-21 07:26] LABS: BASOPHILS 0.2 % (0-2); EOSINOPHILS 2.4 % (0-7); HEMOGLOBIN 7.9 g/dL (12-16); LYMPHOCYTES 28.3 % (15-50); MCH 31.9 pg (26.0-34.0); MCHC 31.6 g/dL (31.0-37.0); MCV 100.8 fL (80.0-100.0); MEAN PLATELET VOLUME 9.8 fL (7.4-10.4); MONOCYTES 12.6 % (2-11); NEUTROPHILS 56.5 % (40-80); PLATELET COUNT 184 10x3/uL (130-400); RBC 2.48 10x6/uL (4.00-5.40); RDW 13.2 % (11.5-14.5); WBC 4.5 10x3/uL (4.8-10.8)
[2019-12-21 07:38] LABS: ALBUMIN 2.6 g/dL (3.4-5.0); ANION GAP 9.7 mmol/L (8-16); BILIRUBIN - TOTAL 0.37 mg/dL (0.2-1.3); CARBON DIOXIDE 28.2 mmol/L (21.0-32.0); POTASSIUM - SERUM 4.9 mmol/L (3.5-5.1); PROTEIN - SERUM 6.1 g/dL (6.4-8.2)
--- NOTE | 2019-12-21 08:18 | NUR ---
0725 RECEIVED BEDSIDE SHIFT REPORT. PATIENT LETHARGIC. FSBS 31. 1/2 AMP D5 PUSHED, RECHECKED FSBS @ 0730, GLUCOSE 123. PATIENT OPENING EYES TO VERBAL COMBANDS BUT NOT SPEAKING. RECHECKED FSBS @ 0735, FSBS 87. RAPID RESPONSE CALLED. FSBS NOW 78. ICU NURSE HARDIK AT BEDSIDE, PUSHED 1/2 AMP D5, FSBS UP TO 139. PATIENT AWAKE AND ABLE TO DRINK. APPLE JUICE PROVIDED WITH SUGAR. CONTINUE TO CHECK FSBS, NOW AT 108. GAVE TELEPHONE ORDERS TO CHANGE D5NS @ 30 TO D10 @ 60. ORDERS INPUTTED. FSBS RECHECKED AT 0805 100. PATIENT CONTINUES TO EAT BUSCUIT AND DRINK APPLE JUICE. LAST FSBS @ 0820 96. PATIENT SITTING IN BED CONTINUING TO CONSUME APPLE JUICE, BISCUIT, AND NOW COFFEE. PATIENT IS AWAKE AND CONVERSING AND ABLE TO TELL US HER HISTORY AND SOME MEDICATIONS THAT SHE TAKES. CALL LIGHT WITHIN REACH. RESP EVEN AND UNLABORED.
[2019-12-21 09:07] VITALS: BP 109/52
--- NOTE | 2019-12-21 09:15 | NUR ---
FSBS 94. NO INSULIN PER SLIDING SCALE. PATIENT VERBALLY AROUSABLE. ICE WATER PROVIDED AT THIS TIME. CONTINUES WITH D10 INFUSING AT 60. RESP EVEN AND UNLABORED. CALL LIGHT WITHIN REACH.
--- NOTE | 2019-12-21 12:46 | NUR ---
PATIENT REMAINS IN DIALYSIS AT THIS TIME. NO DISTRESS.
[2019-12-21 16:03] VITALS: Ht 154.9 cm; Wt 68.0 kg
--- NOTE | 2019-12-21 16:36 | NUR ---
FSBS 119. NO INSULIN PER SLIDING SCALE.
--- NOTE | 2019-12-21 19:31 | NUR ---
RECEIVED UP IN BED LEANING TO LT. YELLS OUT WHEN ATTEMPTING TO REPOSITION. IV TI LT EJ WITH DEXTROSE 10% [id number] AT 60CC/HR. DENIES ANY NEEDS AT THIS TIME.
[2019-12-21 20:00] VITALS: BP 114/63
[2019-12-22] VITALS: BP 124/65
[2019-12-22 04:00] VITALS: BP 135/67
[2019-12-22 07:30] VITALS: BP 148/73
[2019-12-22 11:30] VITALS: BP 142/80
[2019-12-22 12:37] LABS: BASOPHILS 0.2 % (0-2); EOSINOPHILS 2.1 % (0-7); HEMATOCRIT 27.3 % (36.0-48.0); HEMOGLOBIN 8.8 g/dL (12-16); IMMATURE GRANULOCYTES 0.2 % (0-5); LYMPHOCYTES 19.6 % (15-50); MCH 32.6 pg (26.0-34.0); MCHC 32.2 g/dL (31.0-37.0); MCV 101.1 fL (80.0-100.0); MONOCYTES 16.2 % (2-11); NEUTROPHILS 61.7 % (40-80); PLATELET COUNT 179 10x3/uL (130-400); RDW 13.6 % (11.5-14.5); WBC 4.8 10x3/uL (4.8-10.8)
[2019-12-22 12:55] LABS: ANION GAP 12.8 mmol/L (8-16); CALCIUM 7.6 mg/dL (8.5-10.1); CARBON DIOXIDE 27.6 mmol/L (21.0-32.0); POTASSIUM - SERUM 4.4 mmol/L (3.5-5.1)
[2019-12-22 12:58] LABS: CREATININE - SERUM 6.3 mg/dL (0.6-1.3)
[2019-12-22 15:30] VITALS: BP 162/76
--- NOTE | 2019-12-22 19:10 | NUR ---
BEDSIDE REPORT RECEIVED FROM DAY SHIFT, PT CARE ASSUMED. INTRODUCED SELF AND WROTE NAME ON BOARD. PT SITTING UP IN BED, WATCHING TV, AAOX4. DENIES ANY NEEDS AT THIS TIME. BED IN LOWEST POSITION, SR X3, CALL LIGHT WITHIN REACH. WILL CONTINUE TO MONITOR.
[2019-12-22 20:00] VITALS: BP 132/72
[2019-12-23 00:01] VITALS: BP 135/70
--- NOTE | 2019-12-23 01:10 | NUR ---
FSBS 159. REDUCED D10 INFUSION FROM 15 ML/HR TO 10 ML/HR. OFFERED SNACK, ACCEPTED. C/O BACK PAIN OF 10, ON A SCALE OF 0-10. ADMINISTERED PRN TYLENOL 500 MG, PER ORDER. DENIES ANY OTHER NEEDS AT THIS TIME. BED IN LOWEST POSITION, SR X3, CALL LIGHT WITHIN REACH. WILL CONTINUE TO MONITOR.
--- NOTE | 2019-12-23 05:20 | NUR ---
FSBS 139. NO INSULIN OR ADJUSTMENT TO IV INFUSION NEEDED AT THIS TIME. OFFERED SNACK, PT ACCEPTED. DENIES ANY OTHER NEEDS AT THIS TIME. BED IN LOWEST POSITION, SR X3, CALL LIGHT WITHIN REACH. WILL CONTINUE TO MONITOR.
--- NOTE | 2019-12-23 09:43 | NUR ---
AM MEDS GIVEN AT THIS TIME. PT A LITTLE LETHARGIC BUT AROUSES TO VOICE. 500MG OF TYLENOL GIVEN FOR PAIN LEVEL OF 5/10. PT DENIES ANY OTHER NEEDS AT THIS TIME CALL LIGHT IN REACH, NAD NOTED, WILL CONTINUE PLAN OF CARE.
[2019-12-23 09:52] VITALS: BP 173/80
[2019-12-23 12:03] LABS: BASOPHILS 0.2 % (0-2); EOSINOPHILS 2.5 % (0-7); HEMATOCRIT 26.8 % (36.0-48.0); HEMOGLOBIN 8.7 g/dL (12-16); IMMATURE GRANULOCYTES 0.2 % (0-5); MCH 32.1 pg (26.0-34.0); MCHC 32.5 g/dL (31.0-37.0); MEAN PLATELET VOLUME 9.7 fL (7.4-10.4); MONOCYTES 18.2 % (2-11); NEUTROPHILS 64.9 % (40-80); PLATELET COUNT 152 10x3/uL (130-400); RBC 2.71 10x6/uL (4.00-5.40); RDW 13.3 % (11.5-14.5); WBC 5.2 10x3/uL (4.8-10.8)
[2019-12-23 12:04] LABS: MCV 98.9 fL (80.0-100.0)
[2019-12-23 12:18] LABS: ANION GAP 10.9 mmol/L (8-16); CALCIUM 7.8 mg/dL (8.5-10.1); CARBON DIOXIDE 28.3 mmol/L (21.0-32.0); CREATININE - SERUM 7.4 mg/dL (0.6-1.3)
[2019-12-23 12:20] LABS: POTASSIUM - SERUM 5.2 mmol/L (3.5-5.1)
[2019-12-23 13:58] VITALS: BP 150/72
--- NOTE | 2019-12-23 15:00 | NUR ---
CLEANED PT UP FROM INCONT EPISODE. PT DENIES ANY OTHER NEEDS AT THIS TIME. CALL LIGHT IN REACH, NAD NOTED,W ILL CONTINUE TO MONITOR.
--- NOTE | 2019-12-23 15:37 | MORECARE ---
CASE MANAGEMENT DISCHARGE SUMMARY PATIENT: NAVJOT CHANDLER UNIT: [id number] ADM DATE: 12/20/19 AGE: 59 : 56 SEX: F ROOM/BED: D.9415 AUTHOR: KATARINA GARCIA PHYSICIAN: REFERRING PHYSICIAN: LYNN ROSS MD DATE OF SERVICE: 12/23/19 Discharge Plan Patient Name: NAVJOT CHANDLER [facility] [facility] 1960 Planned Disposition: Nursing Facility RICHAR Cert Anticipated Discharge Date: 12/24/19 Discharge Date: Expected LOS: 4 Initial Reviewer: [id number] Initial Review Date: 12/23/2019 Generated: 12/23/19 4:37 pm DCPIA - Discharge Planning Initial Assessment Updated by [id number]: Levy Hope on 12/23/19 3:35 pm * Is the patient Alert and Oriented? Yes * How many steps to enter\exit or inside your home? NONE * PCP DR. MCKAY * Pharmacy [facility] * Preadmission Environment [facility] * Facility Name [facility] * ADLs Partial Dependent * Partial ADLs (Assistance needed) Ambulation Bathing Medication Management Toileting Transfers * Equipment Other Rolling Walker * Other Equipment ALL MEDICAL EQUIPMENT PROVIDED BY FACILITY * List name and contact numbers for known caregivers / representatives who currently or will assist patient after discharge: KATHERINE GOODMAN, DTR, * Verbal permission to speak to the caregivers and representatives has been obtained from the patient. N/A * Community resources currently utilized Other * Please name any agencies selected above. OUTPATIENT DIALYSIS, TTS, [facility], 1130, TB * Additional services required to return to the preadmission environment? No * Can the patient safely return to the preadmission environment? Yes * Has this patient been hospitalized within the prior 30 days at any hospital? No Patient Name: NAVJOT CHANDLER Page 98364 at 1537 All edits/amendments must be made on the electronic document DICTATION DATE: 12/23/19 1537 BENDER MACHINE OPERATOR: AARON 12/23/19 1537 RPT#: [id number] DC DATE: STATUS: ADM IN [facility] [address] [place] [address] END OF REPORT
--- NOTE | 2019-12-23 15:44 | MORECARE ---
CASE MANAGEMENT DISCHARGE SUMMARY PATIENT: NAVJOT CHANDLER UNIT: [id number] ADM DATE: 12/20/19 AGE: 59 : 56 SEX: F ROOM/BED: D.1185 AUTHOR: KATARINA GARCIA PHYSICIAN: REFERRING PHYSICIAN: LYNN ZHONG MD DATE OF SERVICE: 12/23/19 Discharge Plan Patient Name: NAVJOT CHANDLER Facility: [facility]:[place] : 1960 Planned Disposition: Nursing Facility RICHAR Cert Anticipated Discharge Date: 12/24/19 Discharge Date: Expected LOS: 4 Initial Reviewer: [id number] Initial Review Date: 12/23/2019 Generated: 12/23/19 4:44 pm Comments DCP- Discharge Planning Updated by [email or web address]: Levy Hope on 12/23/19 2:[address] Patient Name: NAVJOT CHANDLER Admission Status: ER Accout number: [id number] Admission Date: 12-20-2019 : 1960 Admission Diagnosis:TYPE 2 DIABETES MELLITUS WITH HYPOGLYCEMIA WITHOUT COMA Attending: Lynn Zhong Current LOS: 3 Anticipated DC Date: 12-24-2019 Planned Disposition: Nursing Facility RICHAR Cert Primary Insurance: MEDICAID [place] PLANNED EXTERNAL PROVIDER: MARITZA BELL MEDICARE REHAB BED Discharge Planning Comments: CM MET WITH PT IN ROOM TO DISCUSS DISCHARGE PLANNING AND NEEDS. PT REPORTS LIVING AT [facility]. PT HAS BEEN THERE FOR TWO MONTHS AND PL[facility]. PT HAS ROLLING WALKER AND ALL NEEDED MEDICAL EQUIPMENT IS PROVIDED BY FACILITY. PT GOES TO DIALYSIS ON TTS, 1130AM SCHEDULE TO [facility]. PT DENIES DISCHARGE NEEDS, REPORTS [facility] WILL PICK HER UP FOR DISCHARGE. CHOICE SIGNED FOR [facility]. CM CALLED [facility], , SPOKE TO CHAPARRITA WHO VERIFIED THAT PT IS IN CARE HOME CARE MEDICAID PENDING BED AND THEY PLAN TO ACCEPT PT BACK. THEY HAVE NOT HEARD OF ANY PLANS FOR PT TO LEAVE THE [facility] OF THIS TIME. CM FAXED UPDATE TO [facility] AT [phone]. FOR DISCHARGE, FAX DISCHARGE INFORMATION TO [facility] AT [phone], NURSE REPORT TO BE CALLED TO [facility] AT [phone]. [facility] TO ARRANGE TRANSPORTATION. Entry Level Assistant Manager: Levy Hope DCPIA - Discharge Planning Initial Assessment Updated by [id number]: Levy Hope on 12/23/19 3:35 pm * Is the patient Alert and Oriented? Yes * How many steps to enter\exit or inside your home? NONE * PCP DR. MCKAY * Pharmacy [facility] * Preadmission Environment [facility] * Facility Name [facility] * ADLs Partial Dependent * Partial ADLs (Assistance needed) Ambulation Bathing Medication Management Toileting Transfers * Equipment Other Rolling Walker * Other Equipment ALL MEDICAL EQUIPMENT PROVIDED BY FACILITY * List name and contact numbers for known caregivers / representatives who currently or will assist patient after discharge: KATHERINE GOODMAN, R, * Verbal permission to speak to the caregivers and representatives has been obtained from the patient. N/A * Community resources currently utilized Other * Please name any agencies selected above. OUTPATIENT DIALYSIS, TTS, [facility], 1130, TB * Additional services required to return to the preadmission environment? No * Can the patient safely return to the preadmission environment? Yes * Has this patient been hospitalized within the prior 30 days at any hospital? No External Providers External Provider: [facility] Next Contact Date: 12/23/2019 Service Request Date: Service Type: Resolution: Reviewer: Comments: Last DP export: 12/23/19 2:37 pm Patient Name: NAVJOT CHANDLER Page [phone] at 1544 All edits/amendments must be made on the electronic document DICTATION DATE: 12/23/19 1544 MARKING STITCHER: AARON 12/23/19 1544 RPT#: [id number] DC DATE: STATUS: ADM IN [facility] [address] [place] [address] END OF REPORT
[2019-12-23 17:40] VITALS: BP 154/78
--- NOTE | 2019-12-23 19:31 | NUR ---
RECEIVED UP IN BED WITH EYES OPEN AND FAMILY AT BEDSIDE. ALERT AND ORIENTED. POOR EYESIGHT. TRIALYSIS TO LT EJ. DSG CDI. PEG TUBE IN PLACE AND NOT ACCESSED. BUTTOCKS EXCORIATED. DENIES ANY NEEDS AT THIS TIME.
[2019-12-23 22:23] VITALS: BP 143/66
[2019-12-24 00:48] VITALS: BP 144/80
[2019-12-24 05:22] VITALS: BP 133/74
[2019-12-24] MEDS ORDERED: NEPHRO-VITE RX1 TAB PO (08:33)
--- NOTE | 2019-12-24 09:18 | MORECARE ---
CASE MANAGEMENT DISCHARGE SUMMARY PATIENT: NAVJOT CHANDLER UNIT: [id number] ADM DATE: 12/20/19 AGE: 59 : 56 SEX: F ROOM/BED: D.6422 AUTHOR: KATARINA GARCIA PHYSICIAN: REFERRING PHYSICIAN: LYNN ZHONG MD DATE OF SERVICE: 12/24/19 Discharge Plan Patient Name: NAVJOT CHANDLER Facility: [facility]:[place] : 1960 Planned Disposition: Nursing Facility RICHAR Cert Anticipated Discharge Date: 12/24/19 Discharge Date: Expected LOS: 4 Initial Reviewer: [id number] Initial Review Date: 12/23/2019 Generated: 12/24/19 10:18 am Comments DCP- Discharge Planning Updated by [id number]: Levy Hope on 12/24/19 8:[address] Patient Name: NAVJOT CHANDLER Encounter No: [id number] : 1960 Primary Insurance: MEDICAID [place] Anticipated DC Date: 12-24-2019 Planned Disposition: Nursing Facility RICHAR Cert External Planned Provider: [facility], MEDICARE REHAB BED Discharge Planning Comments: CM RECEIVED DISCHARGE ORDER, FAXED DISCHARGE INFORMATION TO [facility] AT [phone]. NOTIFIED ARELIS OF [facility] THAT PT WILL NOT BE READY TO MANUAL CONTROL AUGER PRESS OPERATOR UNTIL AFTER DIALYSIS COMPLETION THIS AFTERNOON. NURSE REPORT TO BE CALLED TO [facility] AT [phone]. [facility] TO ARRANGE TRANSPORTATION. Occupational Therapy Co Director: Levy Hope DCP- Discharge Planning Updated by [id number]: Levy Hope on 12/23/19 2:[address] Patient Name: NAVJOT CHANDLER Admission Status: ER Accout number: [id number] Admission Date: 12-20-2019 : 1960 Admission Diagnosis:TYPE 2 DIABETES MELLITUS WITH HYPOGLYCEMIA WITHOUT COMA Attending: Lynn Zhong Current LOS: 3 Anticipated DC Date: 12-24-2019 Planned Disposition: Nursing Facility RICHAR Cert Primary Insurance: MEDICAID [place] PLANNED EXTERNAL PROVIDER: [facility], MEDICARE REHAB BED Discharge Planning Comments: CM MET WITH PT IN ROOM TO DISCUSS DISCHARGE PLANNING AND NEEDS. PT REPORTS LIVING AT [facility]. PT HAS BEEN THERE FOR TWO MONTHS AND PL[facility]. PT HAS ROLLING WALKER AND ALL NEEDED MEDICAL EQUIPMENT IS PROVIDED BY FACILITY. PT GOES TO DIALYSIS ON TTS, 1130AM SCHEDULE TO [facility]. PT DENIES DISCHARGE NEEDS, REPORTS [facility] FOR [facility]CHARGE. CHOICE SIGNED FOR [facility]. CM CALLED [facility], , SPOKE TO CHAPARRITA WHO VERIFIED THAT PT IS IN [facility] CARE MEDICAID PENDING BED AND THEY PLAN TO ACCEPT PT BACK. THEY HAVE NOT HEARD OF ANY PLANS FOR PT TO LEAVE THE [facility] OF THIS TIME. CM FAXED UPDATE TO [facility] AT [phone]. FOR DISCHARGE, FAX DISCHARGE INFORMATION TO [facility] AT [phone], NURSE REPORT TO BE CALLED TO [facility] AT [phone]. [facility] TO ARRANGE TRANSPORTATION. Occupational Therapy Co Director: Levy Hope DCPIA - Discharge Planning Initial Assessment Updated by [id number]: Levy Hope on 12/23/19 3:35 pm * Is the patient Alert and Oriented? Yes * How many steps to enter\exit or inside your home? NONE * PCP DR. MCKAY * Pharmacy [facility] * Preadmission Environment [facility] [employer] [facility] [facility] * Facility Name [facility] * ADLs Partial Dependent * Partial ADLs (Assistance needed) Ambulation Bathing Medication Management Toileting Transfers * Equipment Other Rolling Walker * Other Equipment ALL MEDICAL EQUIPMENT PROVIDED BY FACILITY * List name and contact numbers for known caregivers / representatives who currently or will assist patient after discharge: KATHERINE GOODMAN, DTR, * Verbal permission to speak to the caregivers and representatives has been obtained from the patient. N/A * Community resources currently utilized Other * Please name any agencies selected above. OUTPATIENT DIALYSIS, TTS, [facility], 1130, TB * Additional services required to return to the preadmission environment? No * Can the patient safely return to the preadmission environment? Yes * Has this patient been hospitalized within the prior 30 days at any hospital? No Coverage Notice Reviewer: [id number] - Levy Hope Notice Issued Date-Time: 12/23/2019 14:45 Notice Type: Patient Choice Letter Notice Delivered To: Patient Relationship to Patient: Fountain Worker Name: Delivery Method: HAND - Hand Delivered Debbie Days: Prior Verbal Notification: Recipient Understood Notice: Yes Recipient Signature: Yes Med Rec Note Co-signed by Attending: Coverage Notice Comment: MARITZA BELL Last DP export: 12/23/19 2:44 pm Patient Name: NAVJOT CHANDLER Page 06479 at 0918 All edits/amendments must be made on the electronic document DICTATION DATE: 12/24/19917 STEWARDING SUPERVISOR: AARON 12/24/19917 RPT#: [id number] DC DATE: STATUS: ADM IN [facility] [address] [place] [address] END OF REPORT
--- NOTE | 2019-12-24 09:27 | NUR ---
AM MEDS GIVEN AT THIS TIME. PT RESTING COMFORTABLY IN BED, DENIES ANY NEEDS AT THIS TIME. CALL LIGHT IN REACH, NAD NOTED,WILL CONTINUE TO MONITOR.
[2019-12-24 11:02] VITALS: BP 146/77
--- NOTE | 2019-12-24 11:49 | MORECARE ---
CASE MANAGEMENT DISCHARGE SUMMARY PATIENT: NAVJOT CHANDLER UNIT: [id number] ADM DATE: 12/20/19 AGE: 59 : 56 SEX: F ROOM/BED: D.2372 AUTHOR: KATARINA GARCIA PHYSICIAN: REFERRING PHYSICIAN: LYNN ZHONG MD DATE OF SERVICE: 12/24/19 Discharge Plan Patient Name: NAVJOT CHANDLER Facility: [facility]:[place] : 1960 Planned Disposition: Nursing Facility RICHAR Cert Anticipated Discharge Date: 12/24/19 Discharge Date: Expected LOS: 4 Initial Reviewer: [id number] Initial Review Date: 12/23/2019 Generated: 12/24/19 12:49 pm Comments DCP- Discharge Planning Updated by [id number]: Levy Hope on 12/24/19 8:[address] Patient Name: NAVJOT CHANDLER Encounter No: [id number] : 1960 Primary Insurance: MEDICAID [place] Anticipated DC Date: 12-24-2019 Planned Disposition: Nursing Facility RICHAR Cert External Planned Provider: [facility], MEDICARE REHAB BED Discharge Planning Comments: CM RECEIVED DISCHARGE ORDER, FAXED DISCHARGE INFORMATION TO [facility] AT [phone]. NOTIFIED ARELIS OF [facility] THAT PT WILL NOT BE READY TO DRAFTER TOPOGRAPHICAL UNTIL AFTER DIALYSIS COMPLETION THIS AFTERNOON. NURSE REPORT TO BE CALLED TO [facility] AT [phone]. [facility] TO ARRANGE TRANSPORTATION. Carpenter Assembler: Levy Hope DCP- Discharge Planning Updated by [id number]: Levy Hope on 12/23/19 2:[address] Patient Name: NAVJOT CHANDLER Admission Status: ER Accout number: [id number] Admission Date: 12-20-2019 : 1960 Admission Diagnosis:TYPE 2 DIABETES MELLITUS WITH HYPOGLYCEMIA WITHOUT COMA Attending: Lynn Zhong Current LOS: 3 Anticipated DC Date: 12-24-2019 Planned Disposition: Nursing Facility RICHAR Cert Primary Insurance: MEDICAID [place] PLANNED EXTERNAL PROVIDER: [facility], MEDICARE REHAB BED Discharge Planning Comments: CM MET WITH PT IN ROOM TO DISCUSS DISCHARGE PLANNING AND NEEDS. PT REPORTS LIVING AT [facility]. PT HAS BEEN THERE FOR TWO MONTHS AND PLANS TO GO HOME SOON FROM THE [facility]IDENTIAL. PT HAS ROLLING WALKER AND ALL NEEDED MEDICAL EQUIPMENT IS PROVIDED BY FACILITY. PT GOES TO DIALYSIS ON TTS, 1130AM SCHEDULE TO [facility]. PT DENIES DISCHARGE NEEDS, REPORTS THE RESIDENTIAL WILL PICK HER UP FOR DISCHARGE. CHOICE SIGNED FOR [facility]. CM CALLED [facility], , SPOKE TO CHAPARRITA WHO VERIFIED THAT PT IS IN CARE HOME CARE MEDICAID PENDING BED AND THEY PLAN TO ACCEPT PT BACK. THEY HAVE NOT HEARD OF ANY PLANS FOR PT TO LEAVE THE RESIDENTIAL OF THIS TIME. CM FAXED UPDATE TO [facility] AT [phone]. FOR DISCHARGE, FAX DISCHARGE INFORMATION TO [facility] AT [phone], NURSE REPORT TO BE CALLED TO [facility] AT [phone]. [facility] TO ARRANGE TRANSPORTATION. Carpenter Assembler: Levy Hope DCPIA - Discharge Planning Initial Assessment Updated by [email or web address]: Levy Hope on 12/24/19 11:41 am * Is the patient Alert and Oriented? Yes * How many steps to enter\exit or inside your home? NONE * PCP DR. MCKAY * Pharmacy [facility] * Preadmission Environment [facility] * Facility Name [facility] * ADLs Partial Dependent * Partial ADLs (Assistance needed) Ambulation Bathing Medication Management Toileting Transfers * Equipment Other Rolling Walker * Other Equipment ALL MEDICAL EQUIPMENT PROVIDED BY FACILITY * List name and contact numbers for known caregivers / representatives who currently or will assist patient after discharge: KATHERINE GOODMAN, DTR, * Verbal permission to speak to the caregivers and representatives has been obtained from the patient. N/A * Community resources currently utilized Other * Please name any agencies selected above. OUTPATIENT DIALYSIS, TTS, [facility], 1130, TB * Additional services required to return to the preadmission environment? No * Can the patient safely return to the preadmission environment? Yes * Has this patient been hospitalized within the prior 30 days at any hospital? No Coverage Notice Reviewer: [id number] - Levy Hope Notice Issued Date-Time: 12/23/2019 14:45 Notice Type: Patient Choice Letter Notice Delivered To: Patient Relationship to Patient: Electric Dolly Operator Name: Delivery Method: HAND - Hand Delivered Debbie Days: Prior Verbal Notification: Recipient Understood Notice: Yes Recipient Signature: Yes Med Rec Note Co-signed by Attending: Coverage Notice Comment: MARITZA BELL Last DP export: 12/24/19 8:18 a Patient Name: NAVJOT CHANDLER Page 17144 at 1149 All edits/amendments must be made on the electronic document DICTATION DATE: 12/24/19 114 MOLDER FEEDER: AARON 12/24/19 1149 RPT#: [id number] DC DATE: STATUS: ADM IN [facility] [address] [place] [address] END OF REPORT
--- NOTE | 2019-12-24 14:50 | NUR ---
PT TO DIALYSIS.
--- NOTE | 2019-12-24 18:24 | NUR ---
PROVIDED VERBAL AND WRITTEN DISCHARGE TEACHING TO PT. PT LEFT UNIT VIA WHEELCHAIR, WITH ALL BELONGINGS, NAD NOTED.
--- NOTE | 2019-12-24 19:10 | NUR ---
TRIED CALLING REPORT TO [facility] AT [phone] TIMES AND DID NOT GET AN ANSWER.
--- NOTE | 2019-12-25 08:51 | MORECARE ---
CASE MANAGEMENT DISCHARGE SUMMARY PATIENT: NAVJOT CHANDLER UNIT: [id number] ADM DATE: 12/20/19 AGE: 59 : 56 SEX: F ROOM/BED: D.0284 AUTHOR: KATARINA GARCIA PHYSICIAN: REFERRING PHYSICIAN: LYNN ZHONG MD DATE OF SERVICE: 12/25/19 Discharge Plan Patient Name: NAVJOT CHANDLER Facility: [facility]:[place] : 1960 Planned Disposition: Nursing Facility RICHAR Cert Anticipated Discharge Date: 12/24/19 Discharge Date: 12/24/2019 Expected LOS: 4 Initial Reviewer: [id number] Initial Review Date: 12/23/2019 Generated: 12/25/19 9:50 am Comments DCP- Discharge Planning Updated by [email or web address]: Levy Hope on 12/24/19 8:[address] Patient Name: NAVJOT CHANDLER Encounter No: [id number] : 1960 Primary Insurance: MEDICAID [place] Anticipated DC Date: 12-24-2019 Planned Disposition: Nursing Facility RICHAR Cert External Planned Provider: [facility], MEDICARE REHAB BED Discharge Planning Comments: CM RECEIVED DISCHARGE ORDER, FAXED DISCHARGE INFORMATION TO [facility] AT [phone]. NOTIFIED ARELIS OF [facility] THAT PT WILL NOT BE READY TO MOVING WORKER UNTIL AFTER DIALYSIS COMPLETION THIS AFTERNOON. NURSE REPORT TO BE CALLED TO [facility] AT [phone]. [facility] TO ARRANGE TRANSPORTATION. Marine Service Manager: Levy Hope DCP- Discharge Planning Updated by [id number]: Levy Hope on 12/23/19 2:[address] Patient Name: NAVJOT CHANDLER Admission Status: ER Accout number: [id number] Admission Date: 12-20-2019 : 1960 Admission Diagnosis:TYPE 2 DIABETES MELLITUS WITH HYPOGLYCEMIA WITHOUT COMA Attending: Lynn Zhong Current LOS: 3 Anticipated DC Date: 12-24-2019 Planned Disposition: Nursing Facility RICHAR Cert Primary Insurance: MEDICAID [place] [facility] Discharge Planning Comments: CM MET WITH PT IN ROOM TO DISCUSS DISCHARGE PLANNING AND NEEDS. PT REPORTS LIVING AT [facility]. PT HAS BEEN THERE FOR TWO MONTHS AND PLANS TO GO HOME SOON FROM THE ALF. PT HAS ROLLING WALKER AND ALL NEEDED MEDICAL EQUIPMENT IS PROVIDED BY FACILITY. PT GOES TO DIALYSIS ON TTS, 1130AM SCHEDULE TO [facility]. PT DENIES DISCHARGE NEEDS, REPORTS THE ALF WILL PICK HER UP FOR DISCHARGE. CHOICE SIGNED FOR [facility]. CM CALLED [facility], , SPOKE TO CHAPARRITA WHO VERIFIED THAT PT IS IN [employer]BR[employer] WORKER CARE MEDICAID PENDING BED AND THEY PLAN TO ACCEPT PT BACK. THEY HAVE NOT HEARD OF ANY PLANS FOR PT TO LEAVE THE ALF OF THIS TIME. CM FAXED UPDATE TO [facility] AT [phone]. FOR DISCHARGE, FAX DISCHARGE INFORMATION TO [facility] AT [phone], NURSE REPORT TO BE CALLED TO [facility] AT [phone]. [facility] TO ARRANGE TRANSPORTATION. Marine Service Manager: Levy Hope ORPIA - Discharge Planning Initial Assessment Updated by [id number]: Levy Hope on 12/24/19 11:41 am * Is the patient Alert and Oriented? Yes * How many steps to enter\exit or inside your home? NONE * PCP DR. MCKAY * Pharmacy [facility] * Preadmission Environment [facility] * Facility Name [facility] * ADLs Partial Dependent * Partial ADLs (Assistance needed) Ambulation Bathing Medication Management Toileting Transfers * Equipment Other Rolling Walker * Other Equipment ALL MEDICAL EQUIPMENT PROVIDED BY FACILITY * List name and contact numbers for known caregivers / representatives who currently or will assist patient after discharge: KATHERINE GOODMAN, DTR, * Verbal permission to speak to the caregivers and representatives has been obtained from the patient. N/A * Community resources currently utilized Other * Please name any agencies selected above. OUTPATIENT DIALYSIS, TTS, [facility], 1130, TB * Additional services required to return to the preadmission environment? No * Can the patient safely return to the preadmission environment? Yes * Has this patient been hospitalized within the prior 30 days at any hospital? No Coverage Notice Reviewer: [id number] - Levy Hope Notice Issued Date-Time: 12/23/2019 14:45 Notice Type: Patient Choice Letter Notice Delivered To: Patient Relationship to Patient: Sheriffs Detective Name: Delivery Method: HAND - Hand Delivered Debbie Days: Prior Verbal Notification: Recipient Understood Notice: Yes Recipient Signature: Yes Med Rec Note Co-signed by Attending: Coverage Notice Comment: MARITZA Mchugh DP export: 12/24/19 10:49 a Patient Name: NAVJOT CHANDLER Page 55498 at 0851 All edits/amendments must be made on the electronic document DICTATION DATE: 12/25/1950 HYDROELECTRIC PLANT OPERATOR: AARON 12/25/1952 RPT#: [id number] DC DATE:12/24/19 STATUS: DIS IN [facility] [address] [place] [address] END OF REPORT
== END 2019-12-24 18:43 | DRG 638 ==
LOC: D.ER 17:10 → D.M2 18:35
PROVIDERS: Family Medicine; ADMIT Internal Medicine Nephrology; ATTEND Internal Medicine Nephrology
PROC: 5A1D70Z Performance of Urinary Filtration, Intermittent, Less than 6 Hours Per Day (ICD-10-PCS; principal; 2019-12-20)
DX: E11.649 Type 2 diabetes mellitus with hypoglycemia without coma (principal); I13.2 Hypertensive heart and chronic kidney disease with heart failure and with stage 5 chronic kidney disease, or end stage renal disease; E87.1 Hypo-osmolality and hyponatremia; E11.22 Type 2 diabetes mellitus with diabetic chronic kidney disease; N18.6 End stage renal disease; I25.10 Atherosclerotic heart disease of native coronary artery without angina pectoris; J44.9 Chronic obstructive pulmonary disease, unspecified; D63.1 Anemia in chronic kidney disease